=== PATIENT | male | born 1950 | race Caucasian/White ===

== ENCOUNTER 2017-10-21 09:05 | Emergency (ER) | payer OTHER, MEDICARE ==
[2017-10-21 09:12] VITALS: BP 142/71
--- NOTE | 2017-10-21 09:50 | ER Document Report ---
HPI - HPI Patient complains to provider of: Right ankle pain Pain Level: 3 Context: Patient is a 67-year-old male complaining of pain above his right medial ankle 2 days. Patient reports that he hit his ankle on the door of his truck as he was trying to close the door with his foot. The swelling and pain above his ankle has been consistent. Patient felt nauseous this morning. No chest pain or shortness of breath. Patient is able to walk without any difficulty on this ankle. No previous injuries. Associated Symptoms: None Exacerbated by: Walking - Foot dorsi flexion is most painful Relieved by: Denies Similar symptoms previously: No - MUSCULOSKELETAL Musculoskeletal: REPORTS: Extremity pain Past Medical History - General Information source: Patient - Social History Smoking Status: Current Some Day Smoker Chew tobacco use (# tins/day): No Frequency of alcohol use: Rare Drug Abuse: None Lives with: Family Family History: Reviewed & Not Pertinent Patient has suicidal ideation: No Patient has homicidal ideation: No - Past Medical History Cardiac Medical History: Denies: Hx Coronary Artery Disease, Hx Heart Attack, Hx Hypercholesterolemia , Hx Hypertension Renal/ Medical History: Denies: Hx Peritoneal Dialysis Psychiatric Medical History: Denies: Hx Depression Past Surgical History: Reports: Hx Orthopedic Surgery - Immunizations Hx Diphtheria, Pertussis, Tetanus Vaccination: Yes Vertical Provider Document - CONSTITUTIONAL Agree With Documented VS: Yes Exam Limitations: No Limitations General Appearance: WD/WN, No Apparent Distress - INFECTION CONTROL TRAVEL OUTSIDE OF THE [place] IN LAST 30 DAYS: No - HEENT HEENT: Atraumatic, PERRLA - NECK Neck: Normal Inspection, Supple - RESPIRATORY Respiratory: Breath Sounds Normal - CARDIOVASCULAR Cardiovascular: Regular Rate, Regular Rhythm - MUSCULOSKELETAL/EXTREMETIES Musculoskeletal/Extremeties: Tender - Positive soft tissue swelling superior to medial malleolus. Mild surrounding ecchymosis. Distal sensory motor circulation intact. Strong pedal pulse. Right foot is warm to touch. Calf is nontender. Negative Homans - NEURO Level of Consciousness: Awake, Alert, Appropriate - DERM Integumentary: Warm, Dry Course - Re-evaluation Re-evalutation: 10/21/17 09:46 X-ray film and read report reviewed. There is no fracture. There is soft tissue swelling over the medial medial malleolus which is consistent with patient's injury. These findings were discussed with the patient. After performing a Medical Screening Examination, I estimate there is LOW risk for OPEN FRACTURE, COMPARTMENT SYNDROME, DEEP VENOUS THROMBOSIS, ACUTE TENDON RUPTURE, or NEUROVASCULAR INJURY thus I consider the discharge disposition reasonable. I have reevaluated this patient multiple times and no significant life threatening changes are noted. The patient and I have discussed the diagnosis and risks, and we agree with discharging home to closely follow-up with their primary doctor or the referral orthopedist with the understanding that symptoms and presentations can change. We also discussed returning to the Emergency Department immediately if new or worsening symptoms occur. We have discussed the symptoms which are most concerning (e.g., changing or worsening pain, numbness, weakness) that necessitate immediate return Please follow up with the Orthopedics [facility] [address] [place] [address] - Vital Signs Vital signs: Temp Pulse Resp BP Pulse Ox 98.6 F 67 16 142/71 H 97 10/21/17 09:11 10/21/17 09:11 10/21/17 09:11 10/21/17 09:11 10/21/17 09:11 Procedures - Immobilization Right ankle Pre-Proc Neuro Vasc Exam: Normal Immobilizer type: Ankle stirrup Performed by: PCT Post-Proc Neuro Vasc Exam: Normal Alignment checked and good: Yes Discharge - Discharge Clinical Impression: Contusion of right ankle Qualifiers: Encounter type: initial encounter Qualified Code(s): S90.01XA - Contusion of right ankle, initial encounter Condition: Stable Disposition: HOME, SELF-CARE Instructions: Ankle Stirrup Splint ([facility]), Ice & Elevation ([facility]), Contusion ([facility] ) Additional Instructions: Your x-ray was negative today for any fractures. Wear the splint for comfort and support Ice and elevate your ankle as much as possible Ibuprofen for swelling and discomfort Follow-up with your primary care orthopedist if pain persists more than 10 days Prescriptions: Ibuprofen [Motrin 800 Mg Tablet] 800 mg PO Q6H #20 tablet Referrals: PEGGY YEAGER MD [Primary Care Provider] - Follow up as needed
--- NOTE | 2017-10-21 10:00 | RADIOLOGY REPORT (SQ) ---
EXAM DESCRIPTION: ANKLE RIGHT COMPLETE COMPLETED DATE/TIME: 10/21/2017 9:51 am REASON FOR STUDY: medial ankle pain and swelling COMPARISON: None. NUMBER OF VIEWS: Three views. TECHNIQUE: AP, lateral, and oblique radiographic images acquired of the right ankle. LIMITATIONS: None. FINDINGS: MINERALIZATION: Normal. BONES: No acute fracture or dislocation. No worrisome bone lesions. JOINTS: Tibiotalar joint effusion. No disruption of the ankle mortise SOFT TISSUES: Diffuse lateral soft tissue swelling. No radiopaque foreign body. OTHER: No other significant finding. IMPRESSION: Lateral soft tissue swelling with ankle joint effusion. No acute fracture or malalignme nt TECHNICAL DOCUMENTATION: JOB ID: [id number] [employer]- All Rights Reserved Reading location - IP/workstation name: [email or web address]
== END 2017-10-21 10:16 | disposition home or self-care (01) ==
LOC: ER 09:05
PROC: 2W3QX1Z Immobilization of Right Lower Leg using Splint (ICD-10-PCS; principal; 2017-10-21)
DX: S90.01XA Contusion of right ankle, initial encounter (principal); M25.571 Pain in right ankle and joints of right foot; M79.89 Other specified soft tissue disorders; R11.0 Nausea; W22.8XXA Striking against or struck by other objects, initial encounter; F17.200 Nicotine dependence, unspecified, uncomplicated
CPT/HCPCS: 99283; 73610; 29515; L1902

== ENCOUNTER 2017-11-15 17:15 | Emergency (ER) | payer MEDICARE, OTHER ==
--- NOTE | 2017-11-15 17:35 | ER Document Report ---
ED Medical Screen (RME) - General Chief Complaint: Leg Pain Stated Complaint: LEG PAIN Time Seen by Provider: 11/15/17 17:23 Mode of Arrival: Ambulatory Information source: Patient Notes: This is a 67-year-old man with no significant medical problems who presents to the emergency room with right thigh pain for the past few weeks. He denies chest pain or shortness of breath. Patient takes a baby aspirin a day. He is a smoker. He is allergic to penicillin. He is followed up by guera Danielle. TRAVEL OUTSIDE OF THE [place] IN LAST 30 DAYS: No - Related Data Allergies/Adverse Reactions: Penicillins Allergy (Verified 11/15/17 17:21) Past Medical History - Social History Chew tobacco use (# tins/day): No Frequency of alcohol use: Occasional Drug Abuse: None - Past Medical History Cardiac Medical History: Denies: Hx Coronary Artery Disease, Hx Heart Attack, Hx Hypercholesterolemia , Hx Hypertension Renal/ Medical History: Denies: Hx Peritoneal Dialysis Psychiatric Medical History: Denies: Hx Depression Past Surgical History: Reports: Hx Orthopedic Surgery - b/l knee - Immunizations Hx Diphtheria, Pertussis, Tetanus Vaccination: Yes Physical Exam - Vital signs Vitals: Temp Pulse Resp BP Pulse Ox 98.6 F 65 18 137/84 H 97 11/15/17 17:19 11/15/17 17:19 11/15/17 17:19 11/15/17 17:19 11/15/17 17:19 Course - Vital Signs Vital signs: Temp Pulse Resp BP Pulse Ox 98.6 F 65 18 137/84 H 97 11/15/17 17:19 11/15/17 17:19 11/15/17 17:19 11/15/17 17:19 11/15/17 17:19 Doctor's Discharge - Discharge Referrals: PEGGY DANIELLE MD [Primary Care Provider] - Follow up as needed
--- NOTE | 2017-11-15 19:22 | ER Document Report ---
ED General - General Chief Complaint: Leg Pain Stated Complaint: LEG PAIN Time Seen by Provider: 11/15/17 17:23 Mode of Arrival: Ambulatory Information source: Patient Notes: 67-year-old male presents the emergency department with complaints of right inner thigh pain that has been present over the last month. Patient describes the pain as an aching sensation in the right medial thigh. No radiation of the pain. No alleviating or exacerbating factors. Patient is able to ambulate despite the pain. Patient made an appointment with his primary care physician for tomorrow. Patient denies a history of DVT, PE, recent travel, recent surgery, hormone use, history of malignancy. Patient denies any trauma or injury. Patient states that the pain just started out of the blue. He denies any numbness, tingling, weakness, shortness of breath, chest pain. TRAVEL OUTSIDE OF THE [place] IN LAST 30 DAYS: No - HPI Patient complains to provider of: Right inner thigh pain Onset: Other - A month prior to arrival Onset/Duration: Sudden Quality of pain: Achy Severity: Moderate Pain Level: 5 Associated symptoms: None Exacerbated by: Denies Relieved by: Denies Similar symptoms previously: No Recently seen / treated by doctor: No - Related Data Allergies/Adverse Reactions: Penicillins Allergy (Verified 11/15/17 17:21) Past Medical History - General Information source: Patient - Social History Smoking Status: Current Every Day Smoker Chew tobacco use (# tins/day): No Frequency of alcohol use: Occasional Drug Abuse: None Family History: Reviewed & Not Pertinent Patient has suicidal ideation: No Patient has homicidal ideation: No - Past Medical History Cardiac Medical History: Denies: Hx Coronary Artery Disease, Hx Heart Attack, Hx Hypercholesterolemia , Hx Hypertension Renal/ Medical History: Denies: Hx Peritoneal Dialysis Psychiatric Medical History: Denies: Hx Depression Past Surgical History: Reports: Hx Orthopedic Surgery - b/l knee - Immunizations Hx Diphtheria, Pertussis, Tetanus Vaccination: Yes Review of Systems - Review of Systems Constitutional: No symptoms reported EENT: No symptoms reported Cardiovascular: No symptoms reported Respiratory: No symptoms reported Gastrointestinal: No symptoms reported Musculoskeletal: Muscle pain Skin: Change in color Neurological/Psychological: No symptoms reported -: Yes All other systems reviewed and negative Physical Exam - Vital signs Vitals: Temp Pulse Resp BP Pulse Ox 98.6 F 65 18 137/84 H 97 11/15/17 17:19 11/15/17 17:19 11/15/17 17:19 11/15/17 17:19 11/15/17 17:19 Interpretation: Normal - Notes Notes: PHYSICAL EXAMINATION: GENERAL: Well-appearing, well-nourished and in no acute distress. HEAD: Atraumatic, normocephalic. EYES: Pupils equal round and reactive to light, extraocular movements intact, sclera anicteric, conjunctiva are normal. ENT: Nares patent, oropharynx clear without exudates. Moist mucous membranes. NECK: Normal range of motion, supple without lymphadenopathy LUNGS: Breath sounds clear to auscultation bilaterally and equal. No wheezes rales or rhonchi. HEART: Regular rate and rhythm without murmurs ABDOMEN: Soft, nontender, nondistended abdomen. No guarding, no rebound. No masses appreciated. Musculoskeletal: Normal range of motion, no pitting or edema. No cyanosis. Pain to the R medial thigh and knee. No calf tenderness to palpation. NEUROLOGICAL: Cranial nerves grossly intact. Normal speech, normal gait. Normal sensory, motor exams PSYCH: Normal mood, normal affect. SKIN: Warm, Dry, normal turgor, no rashes or lesions noted. Course - Re-evaluation Re-evalutation: 11/15/17 19:53 Ultrasound of the right lower extremity done. No DVT appreciated. Patient does have a possible Restrepo's cyst behind the right knee. This could explain the patient's symptoms. He is neurovascular intact. No signs of infection. Patient instructed to keep his appointment with his primary care physician tomorrow. I will refer to orthopedic surgery for further treatment as well. Patient instructed to take OTC medication for symptom relief. 11/15/17 19:56 - Vital Signs Vital signs: Temp Pulse Resp BP Pulse Ox 98.6 F 65 18 137/84 H 97 11/15/17 17:19 11/15/17 17:19 11/15/17 17:19 11/15/17 17:19 11/15/17 17:19 Discharge - Discharge Clinical Impression: Restrepo's cyst of knee Qualifiers: Laterality: right Qualified Code(s): M71.21 - Synovial cyst of popliteal space [Restrepo], right knee Condition: Stable Disposition: HOME, SELF-CARE Instructions: Restrepo's Cyst ([facility]) Referrals: PEGGY YEAGER MD [Primary Care Provider] - Follow up as needed PAULO VALENCIA MD [ACTIVE STAFF] - Follow up as needed
[2017-11-15 21:10] VITALS: BP 140/80
--- NOTE | 2017-11-16 09:01 | XCELERA REPORT ---
[address] [address] Lower Extremity Venous Evaluation Name: KATHRYN HADDAD Age: 67 yrs Gender: Male : 1950 Patient Status: Emergency Patient Location: ER Study Date: 11/15/2017 07:28 PM Procedure: Color flow and duplex imaging of the veins of the right lower extremity as well as the left Common Femoral vein. Reason For Study: right lower extremity pain Ordering Physician: PARVIN NICHOLE Performed By: Brenna Magana Right Sided Venous Evaluation Normal vessel filling wall to wall, compression and augmentation as well as Colour flow down to the infrageniculate veins. Left Sided Venous Evaluation The left common femoral vein is fully compressible. Spontaneous and phasic flow is present in the left common femoral vein. Interpretation Summary No duplex evidence of DVT or obstruction in the right lower extremity nor in the left Common Femoral vein. : PARVIN NICHOLE > Joel Bhardwaj
== END 2017-11-15 20:27 | disposition home or self-care (01) ==
LOC: ER 17:15
DX: M71.21 Synovial cyst of popliteal space [Baker], right knee (principal); M25.561 Pain in right knee; M79.651 Pain in right thigh; Z88.0 Allergy status to penicillin; F17.200 Nicotine dependence, unspecified, uncomplicated
CPT/HCPCS: 93971; 99283

== ENCOUNTER → 2019-03-28 | Outpatient (CLI) | payer BC, MEDICARE ==
--- NOTE | 2019-03-29 18:36 | RADIOLOGY REPORT (SQ) ---
EXAM DESCRIPTION: MRI RT UPPER JOINT WITHOUT COMPLETED DATE/TIME: 03/28/2019 9:06 pm REASON FOR STUDY: M75.101 UNSP ROTATR-CUFF TEAR/RUPTR OF RIGHT SHOULDER, NOT TRAUMA M75.101 UNSP RO TATR-CUFF TEAR/RUPTR OF RIGHT SHOULDER, NOT T COMPARISON: None. TECHNIQUE: Right shoulder images acquired and stored on PACS. Multiplanar imaging to include fat se nsitive sequences such as T1, water sensitive sequences such as FST2/STIR, cartilage sensitive sequen ash such as FSPD/gradient-echo sequences. LIMITATIONS: None. FINDINGS: BONE MARROW AND CORTEX: No marrow signal abnormality worrisome for occult fracture. Small subcortical cysts are present in the anterior edge, right humeral head greater tuberosity. JOINT OR BURSAL EFFUSION: Trace fluid in the subacromial/subdeltoid bursa. No large glenohumeral yifan nt effusion GLENO-HUMERAL ARTICULATION: Normal articulation. No subluxation. No cystic change. No osteophytes or cartilage loss. ACROMION AND AC JOINT: Type 2 acromion with bulky acromioclavicular joint hypertrophy, synovial thic kening and fluid with mild narrowing of the subacromial space. ROTATOR CUFF AND INTERVAL: There is a small full-thickness tear along the anterior most edge of the s upraspinatus tendon with adjacent tendinopathy, best shown on sagittal images 3-8, and coronal image 11. Infraspinatus intact. Superior margin of the subscapularis is high signal near the bicipital gr oove from tendinopathy. No gross rotator interval tear. No rotator interval thickening to suggest adhesive capsulitis. LABRUM AND BICEPS LABRAL COMPLEX: Intact. No labral tear. Intra-articular long-head biceps tendon n ormal. Distal biceps in normal location in bicipital groove. REMAINDER OF LABRUM AND IGHL : No gross tear or paralabral cyst formation. Labral evaluation is less than optimal without joint distention. No thickening of IGHL to suggest adhesive capsulitis. PERIARTICULAR AND ADJACENT SOFT TISSUES: No masses or abnormal nodes. OTHER: No other significant finding. IMPRESSION: Small full-thickness tear anterior edge supraspinatus tendon Tendinopathy in the subscapularis tendon at its insertion near the bicipital groove Bulky acromioclavicular joint hypertrophy TECHNICAL DOCUMENTATION: JOB ID: [id number] [employer]- All Rights Reserved Reading location - IP/workstation name: [email or web address]
== END ==
LOC: RAD 19:30
PROVIDERS: ATTEND Orthopaedic Surgery
DX: M75.101 Unspecified rotator cuff tear or rupture of right shoulder, not specified as traumatic (principal)

== ENCOUNTER 2019-03-29 05:24 | Day surgery (SDC) | payer BC, MEDICARE, OTHER ==
[~2019-03-29 05:24] MED LIST: CEFAZOLIN SODIUM 2 GM in DEXTROSE 5%-WATER 100 ML IV PRN
[2019-03-29] MEDS ORDERED: ALBUTEROL SULFATE 0.083% NEB 2.5 MG/3 ML AMPUL NEB ONE (06:18)
[2019-03-29] MEDS ORDERED: FENTANYL CITRATE INJ/PF 100 MCG/2 ML AMPUL ONE (06:58)
[2019-03-29] MEDS ORDERED: MIDAZOLAM 2 MG/2 ML INJ ONE (06:59)
[2019-03-29] MEDS ORDERED: PROPOFOL INJ 200 MG/20 ML VIAL IV ONE ×2 (06:59→07:24)
[2019-03-29] MEDS ORDERED: LIDOCAINE 2% INJ (20 MG/ML) 20 ML MDV ONE (07:00)
[2019-03-29] MEDS ORDERED: LIDOCAINE 1% INJ-PF (10 MG/ML) 30 ML SDV ONE (07:10)
[2019-03-29] MEDS ORDERED: BUPIVACAINE HCL 0.5 % INJ/PF 30 ML SDV ONE (07:10)
[2019-03-29] MEDS ORDERED: FENTANYL CITRATE INJ/PF 100 MCG/2 ML AMPUL IV PRN ×3 (07:42)
[2019-03-29] MEDS ORDERED: DIPHENHYDRAMINE HCL 50 MG/ML VIAL IV PRN (07:42)
[2019-03-29] MEDS ORDERED: MORPHINE SULFATE 10 MG/ML INJ IV PRN ×2 (07:42→09:47)
[2019-03-29] MEDS ORDERED: OXYCODONE-ACETAMINOPHEN 5-325 MG TABLET PO PRN ×2 (07:42)
[2019-03-29] MEDS ORDERED: ONDANSETRON HCL INJ/PF 4 MG/2 ML SDV IV PRN (07:42)
[2019-03-29] MEDS ORDERED: MEPERIDINE HCL/PF INJ 25 MG/1 ML DISP.SYRIN IV PRN (07:42)
[2019-03-29] MEDS ORDERED: KETOROLAC TROMETHAMINE 60 MG/2 ML SDV ONE (08:21)
--- NOTE | 2019-03-29 08:41 | Operative Report ---
Operative Report DATE OF SURGERY: 03/29/19 PREOPERATIVE DIAGNOSIS: Left Carpal Tunnel Syndrome POSTOPERATIVE DIAGNOSIS: Same OPERATION: Left open carpal tunnel release SURGEON: TYRONE MENDOZA JR ANESTHESIA: Moderate Sedation COMPLICATIONS: none ESTIMATED BLOOD LOSS: minimal- 5cc PROCEDURE: INDICATIONS: This patient is a 68 -year-old male with left carpal tunnel syndrome, which was found to be severe on EMG. He is scheduled for the above- mentioned procedures. The planned procedures were discussed with the patient including the associated risks. The risks included but are not limited to bleeding, infection, nerve damage, failure to heal, possible need for reoperation, possible recurrence, or any associated risk of the anesthesia. He v oiced understanding and agreed to proceed as planned. DESCRIPTION OF PROCEDURE: The patient was identified in the holding area and correct operative site was identified by the surgeon's stephanie. Informed consent was obtained. The patient was then brought to the operating room and transferred to the operating table in supine position. Time-out was then performed at which point the surgeon, nursing staff, and anesthesia staff all confirmed the correct identification. The area of incision was injected with 10 cc of 1% lidocaine. After adequate moderate conscious sedation anesthesia was obtained, a well- padded tourniquet was placed on the patient's left upper arm. The left upper extremity was then prepped and draped in the usual sterile fashion. Planned skin incision was marked along the base of the patient's right palm, ulnar to the palmar crease. Left upper extremity was then exsanguinated using Esmarch. The tourniquet was then inflated to 250 mmHg. Skin incision was then made and dissec tion was carried down with scalpel and littlers to the level of the palmar fascia which was sharply divided. Bleeding points were identified with electrocautery using bipolar electrocautery. Retractors were then placed to allow visualization of the distal extent of the transverse carpal ligament, and this was then divided longitudinally under direct vision. Littler scissors were used to dissect distal to this area to confirm the absence of any remaining crossing obstructing fibrous band. Retractors were then replaced proximally to allow visualization of proximal extent of the transverse carpal ligament and the release was continued proximally until complete release was performed. This was confirmed by visually and palpably. Next, Littler scissors were used to dissect anteroposterior adjacent antebrachial fascia, and this was divided longitudinally under direct vision using Littler scissors to a level of approximately 3 cm proximal to the proximal extent of the skin incision. Carpal canal was then inspected. No other abnormalities were noted. Wounds were then irrigated with normal saline. Skin incision was then closed with running mattres 3-0 nylon suture. The wound was then dressed with xeroform, 4 x 4s, soft-rol, and jorge a wrap. The tourniquet was then deflated. The patient was then awakened and transferred over to his hospital bed. He was transported to recovery room in stable condition. There were no intraoperative or immediate postoperative complications. All counts were reported as correct.
--- NOTE | 2019-03-29 09:25 | EKG REPORT ---
SEVERITY:- ABNORMAL ECG - SINUS RHYTHM RIGHT BUNDLE BRANCH BLOCK : Confirmed by: Sheyla Chu MD 29-Mar-2019 09:24:25
[2019-03-29] MEDS ORDERED: OXYCODONE HCL IR 5 MG TABLET PO PRN ×2 (09:46→09:47)
[2019-03-29] MEDS ORDERED: TRAMADOL HCL 50 MG TABLET PO PRN (09:48)
[2019-03-29] MEDS ORDERED: DIPHENHYDRAMINE HCL 25 MG CAPSULE PO PRN (09:54)
[2019-03-29] MEDS ORDERED: ONDANSETRON 4 MG TAB.RAPDIS PO PRN (09:59)
[2019-03-29] MEDS ORDERED: ACETAMINOPHEN 325 MG TABLET PO SCH (14:00)
[2019-03-29 17:31] VITALS: BP 113/70
== END 2019-03-29 10:15 | disposition home or self-care (01) ==
LOC: OROUT 05:24
PROVIDERS: ATTEND Orthopaedic Surgery
DX: G56.02 Carpal tunnel syndrome, left upper limb (principal)
CPT/HCPCS: 93005; 93010; 64721; J2250; J3490 ×2; J0690; J1885; J3010; J7060; J2704

== ENCOUNTER → 2019-10-13 | Outpatient (CLI) | payer MEDICARE ==
--- NOTE | 2019-10-13 17:21 | RADIOLOGY REPORT (SQ) ---
EXAM DESCRIPTION: VENOUS UNILATERAL LOWER IMAGES COMPLETED DATE/TIME: 10/13/2019 5:01 pm REASON FOR STUDY: RLE POST OP PAIN M79.604 PAIN IN RIGHT LEG COMPARISON: None. TECHNIQUE: Dynamic and static castillo scale and color images acquired of the right leg venous system. S elected spectral images acquired with additional compression and augmentation maneuvers. The contrala teral common femoral vein and saphenofemoral junction were also imaged. Images stored on PACS. LIMITATIONS: None. FINDINGS: COMMON FEMORAL: Normal phasicity, compression and augmentation. No visualized echogenic ma terial on castillo scale. No defects on color images. FEMORAL: Normal compression and augmentation. No visualized echogenic material on castillo scale. No defe cts on color images. POPLITEAL: Normal compression, augmentation. No visualized echogenic material on castillo scale. No defec ts on color images. CALF VESSELS: Normal compression, augmentation. No visualized echogenic material on castillo scale. No de fects on color images. GSV and SSV: Normal compression, augmentation. No visualized echogenic material on castillo scale. No def ects on color images. ANY DEEP VENOUS INSUFFICIENCY: Not evaluated. ANY EVIDENCE OF POPLITEAL CYST: No. OTHER: No other significant finding. CONTRALATERAL COMMON FEMORAL VEIN: Normal phasicity, compression and augmentation. No visualized echogenic material on castillo scale. No de fects on color images. IMPRESSION: 1. NO EVIDENCE OF DVT OR SVT IN THE RIGHT LEG. TECHNICAL DOCUMENTATION: JOB ID: [id number] [employer]- All Rights Reserved Reading location - IP/workstation name: [email or web address]
== END ==
LOC: SP 16:00
PROVIDERS: ATTEND Physician Assistant
DX: M79.604 Pain in right leg (principal)
CPT/HCPCS: 93971